=== PATIENT | female | born 1955 | race Caucasian/White ===

== ENCOUNTER → 2020-01-18 16:05 | Outpatient (CLI) | payer BC, SELFPAY ==
[2020-01-18 16:18] LABS: Bacteria 0 SEEN /hpf (None Seen); Mucous, Urine 0 SEEN /hpf (<or=2+); Squamous Epithelial Cells - UA 0 SEEN /hpf (5-10)
[2020-01-18 17:26] LABS: Color, Urine Yellow (Yellow); Glucose, Dipstick Normal (Normal); Ketone-Dipstick Negative (Negative); Leukocyte Esterase-Dipstick Negative /ul (Negative); Nitrite-Dipstick Negative (Negative); Occult Blood-Urine Negative /ul (Negative); Protein-Dipstick Negative (Negative); Specific Gravity, Urine 1.015 (1.002-1.030); Urine Bilirubin Dipstick Negative (Negative); Urine Clarity Clear (Clear); Urine Urobilinogen Normal (Normal)
[2020-01-18 17:26] LABS: Absolute Lymphocyte Count 1.46 X10^3/uL (0.83-4.51); Absolute Neutrophil Count 4.2 X10^3/uL (2.0-7.7); Basophil# 0.03 X10^3/uL; Basophil% 0.5 % (0-1); Eosinophil# 0.11 X10^3/uL; Eosinophils% 1.7 % (0-5); Hematocrit 45.1 % (37-47); Hemoglobin 14.1 g/dL (12.0-15.0); Lymphocyte # 1.46 X10^3/ul (4.0); Lymphocyte % 23.1 % (19-41); Mean Corp Hgb Conc 31.3 g/dL (32-36); Mean Corpuscular Hgb 30.3 pg (27.0-32.0); Mean Platelet Vol. 9.3 fl (6.2-12.0); Monocyte# 0.47 X10^3/uL; Monocyte% 7.4 % (0-10); NRBC Flagged by Analyzer 0 % (0-5); Neutrophil # 4.21 X10^3/uL (2.7-7.7); Neutrophil % 66.8 % (47-70); Platelet Count 258 K/mm3 (150-450); RBC Distribution Width SD 46.4 fl (35.1-43.9); Red Blood Count 4.65 M/mm3 (4.2-5.4); White Blood Count 6.3 K/mm3 (4.4-11.0)
[2020-01-18 17:45] LABS: Red Blood Cells-Urine 0-5 SEEN /hpf (0-5); White Blood Cells 0-5 SEEN /hpf (0-5)
[2020-01-18 17:59] LABS: ALB/GLOB Ratio 0.9 RATIO (0.9-2.4); AST(SGOT) 17 U/L (15-37); Alanine Aminotransfer ALT/SGPT 19 U/L (13-56); Albumin, Serum 3.5 g/dL (3.2-5.0); Alkaline Phosphatase 91 U/L (45-117); Anion Gap 4 (5-15); BUN 26 mg/dL (7-18); BUN/Creat Ratio 27.5 RATIO (10-20); Calcium,Total 9.2 mg/dL (8.5-10.1); Chloride 108 mmol/L (98-107); Cholesterol 225 mg/dL (200); Creatinine, Serum 0.94 mg/dL (0.55-1.02); EST Glomerular Filtration Rate 64 mL/min (>60); Est Glom Filt Rate - Afr Amer 77 mL/min (>60); Globulin 3.7 g/dL (2.2-4.2); Glucose 97 mg/dL (74-106); High Density Lipoprotein 84 mg/dL; Potassium 4.3 mmol/L (3.5-5.1); Protein, Total 7.2 g/dL (6.4-8.2); Sodium Level 142 mmol/L (136-145); Thyroid Stim Hormone (TSH) 1.52 uIU/mL (0.358-3.74); Triglycerides 96 mg/dL; Very Low Density Lipoprotein 19 mg/dL (5-40)
== END ==
PROVIDERS: PCP Family Medicine; Referring Provider Family Medicine; Visit Provider Family Medicine
DX: Z00.00 Encounter for general adult medical examination without abnormal findings (principal)
CPT/HCPCS: 36415; 80053; 80061; 81001; 84443; 85025

== ENCOUNTER 2020-03-08 07:43 | Day surgery (SDC) | payer BC, SELFPAY ==
[2020-01-31 15:31] VITALS: BMI 24.4
--- NOTE | 2020-03-07 22:36 | PCM.HP.BLA ---
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 It occurred 2 years ago when a washcloth got caught in her earring while she was showering and it ended up tearing her earlobe creating a bifid contour deformity. She has some discomfort when she bumps it. She comes in for further evaluation and treatment. PAST MEDICAL HISTORY Cataracts, bilateral Hearing problem High blood pressure PAST SURGICAL HISTORY hernia repair ALLERGIES No Known Allergies MEDICATIONS amitriptyline hydrochlorothiazide FAMILY HISTORY Aunt - Asthma Mother - Lung cancer, Brain cancer Grandmother - Diabetes Uncle - Heart disease Sister - Thyroid disorder SOCIAL HISTORY Smoking - Non-smoker Alcohol - No Drugs - No REVIEW OF SYSTEMS General - Denies fever, fatigue, and weight loss. Eyes - Denies glaucoma. Has history of cataracts. ENT - Denies nasal congestion and sore throat. Has history of hearing problems. She has a post-traumatic torn right earlobe scar contour deformity. Endocrine - Denies excessive thirst and urination. Skin - Denies suspicious lesions and skin cancer. Musculoskeletal - Denies weakness of muscles and joints, back pain, and arthritis. Complains of joint pain, joint stiffness. Neuro - Denies headaches. Cardiovascular - Denies chest pain, fatigue, and shortness of breath with exertion. Has hypertension. Psych - Denies anxiety and depression. Respiratory - Denies chronic cough and shortness of breath. Gastrointestinal - Denies nausea, vomiting, diarrhea, and constipation. Hematologic - Denies abnormal bruising and bleeding. Genitourinary - Denies hematuria and urinary frequency. PHYSICAL EXAMINATION General - Alert and oriented. HEENT - PERRL. EOMI. Throat is clear. 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 It is a bifid ear lobe that measures 7 mm. Mild discomfort when it is bumped. Neck - Supple and non-tender. No cervical adenopathy. Lungs- Clear to auscultation. Heart - Regular rate and rhythm. Abdomen - Soft and non distended. Extremities - FROM. No axillary adenopathy. Radial pulses are palpable. Neuro - CN II-XII grossly intact. Psych - Normal mood and affect. ASSESSMENT 1. 7 mm post-traumatic painful torn right earlobe scar contour deformity. 2. Late effect puncture wound right earlobe from piercing. PLAN Recommend excising this post-traumatic painful torn right ear lobe scar contour deformity. May rotate a skin flap to create a piercing hole. It will depend on the quality of the scar tissue when it is rotated. If it can be done, then a red rubber catheter would be placed in the piercing hole for a couple of weeks until the swelling around the piercing hole subsides. If it cannot be done, then excision and repair of the deformity would be done. In this scenario, the scar cannot be pierced for 6 months. She can victor another area of the earlobe away from the healing scar. At the time of surgery, may send some tissue to Microbiology for culture. A positive culture would necessitate antibiotic therapy. Surgery would be done on an outpatient basis under local anesthesia and IV sedation. Patient was informed of the risks and complications of the procedure including alternatives to surgery. These were discussed with the patient personally. Patient voices understanding and wishes to proceed. Some of the risks and complications were included in a form from the [employer]. We discussed the current risks associated with COVID-19. While it is understood that there is a community spread of COVID-19, the risk of juan f COVID-19 while at [facility] ([facility]) is very low; however, the risk cannot be completely mitigated because of the community spread of the disease. We discussed in detail the risk of exposure to and/or potential harm posed by the COVID-19 virus with having a surgery/procedure at this time versus the risk of delaying the surgery/procedure. It is not possible to know either the risk of delaying the surgery or procedure or chance of getting an infection with perfect accuracy, but a joint decision was made to proceed at this time with the scheduled surgery/procedure as indicated on the consent form. Patient was notified that we will need to comply with any screening or testing [facility] wishes to perform or that surgery may be delayed for any positive results. Discussed with the patient that I was tested for COVID-19 on 02/29/20. My test was negative. My testing regimen at this time is to be COVID-19 tested every 2 weeks or so. Procedure Criteria Procedure Type: Elective COVID Risk Discussion: The surgeon/proceduralist and patient have discussed in detail the risk of exposure to and/or potential harm posed by the COVID-19 virus with having a surgery/procedure at this time versus the risk of delaying the surgery/procedure. It is not possible to know either the risk of delaying the surgery or procedure or chance of getting an infection with perfect accuracy, but a joint decision was made between the patient and the surgeon/proceduralist to proceed at this time with the scheduled surgery/procedure as indicated on the consent form.
[2020-03-08 08:31] VITALS: BP 123/73; PULSE 61; RESP 14; TEMP 36.8; O2SAT 98; BMI 23.2
[2020-03-08] MEDS: Lactated Ringers 1,000 ML 100 ML IV (08:52)
--- NOTE | 2020-03-08 09:30 | TISS_PTH ---
PATIENT: ROSS KOEHLER LOC: [facility] [place] U#:[id number] AGE/SX: 64/F ROOM: RE03/08/[address]: Dr. Tong Campos MD : 1955 BED: DIS: 03/08/2020 SPEC #: [id number] RECD: 03/08/20 12:57 STATUS: ADRIENNE EMA #: [id number] MAN: 03/08/20 09:[address]: Tong Campos DEPT: SURGICAL PATHOLOGY RECD BY: Pearl Horowitz ENTERED: 03/11/20 08:57 SP TYPE: Tissue Bx MOON DR: Dr. Bhanu Guerra MD Tissues: Ear, NOS Procedures: Surgery Specimen Level IV HEADER OPERATION: Excision and repair painful posttraumatic torn earlobe PRE-OP DIAGNOSIS: 7 mm posttraumatic, painful, torn right earlobe TISSUE SUBMITTED: Right earlobe MICROSCOPIC DIAGNOSIS Lesion of right earlobe, biopsy: Consistent with benign fibroepithelial polyp, inflamed. Solar elastosis. AM:tony 03/12/20 MICROSCOPIC DESCRIPTION Slides are reviewed. GROSS DESCRIPTION Received in fixative is one container labeled with the patient's name and designated right earlobe. The specimen consists of one irregular fragment of light hsu soft tissue that measures 0.2 x 0.1 x <0.1 cm. The specimen is totally submitted in one cassette. / AM:tony 03/11/20 TC:5 CPT: 72453
[2020-03-08] MEDS: Mupirocin Ointment 22gm Tube 1 APPLIC (10:30)
--- NOTE | 2020-03-08 10:42 | PCM.OPRPT ---
Report of Operation Date of Procedure: 03/08/20 Pre-Operative Diagnosis: 1. 7 mm post-traumatic painful torn right earlobe scar contour deformity. 2. Late effect puncture wound right earlobe from piercing. Post-Operative Diagnosis: Same. Surgery/Procedure Performed:: Excision and repair post-traumatic painful torn right ear lobe scar contour deformity with rotation skin flap reconstruction. 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 It occurred 2 years ago when a washcloth got caught in her earring while she was showering and it ended up tearing her earlobe creating a bifid contour deformity. She has some discomfort when she bumps it. Patient was informed of the risks and complications of the procedure including alternatives to surgery. These were discussed with the patient personally. Patient voices understanding and wishes to proceed. Some of the risks and complications were included in a form from the [employer]. paraprofessional interpreter: None Type of Anesthesia:: Local MAC - xylocaine with epinephrine and IV sedation. Specimen's removed: Right ear lobe tissue to Pathology and Microbiology. Drains: None. Estimated Blood Loss (mL): 2 ml. Description of Procedure: Patient was taken to OR in supine position and was given IV sedation. She was placed in the lateral position. The right ear area was prepped and draped in the usual fashion. SCD's were placed for DVT prophylaxis. Perioperative antibiotics were given intravenously. For the surgery, I wore an N95 mask and work proper eye protection. The right ear was infiltrated with xylocaine and epinephrine with a regional auricular block. After waiting 5 minutes for the anesthetic to take effect, I excised the scar contour deformity on the superior edge. On the inferior edge, I excised the scar contour deformity and left the tissue as a proximally based skin flap. The tissue that was excised was sent to Pathology for analysis to rule out carcinoma and to Microbiology for culture. A positive culture will necessitate antibiotic therapy. The inferior skin flap was rotated onto itself and secured to the proximal base of the flap and secured with 5-0 Monocryl simple interrupted sutures. This was done to re-create a piercing hole. The rest of the ear lobe wound was secured with 5-0 Monocryl interrupted suture for the deep dermis and subcutaneous tissue. The skin was approximated with 6-0 Prolene simple interrupted sutures. During the initial postoperative period, I will keep the piercing hole patent with a size 8 red rubber catheter. I sutured it to itself to create a hoop with 5-0 Prolene simple interrupted sutures. Good ear lobe contour noted. Antibiotic ointment was applied to the suture line. Patient tolerated the procedure well and was sent to PACU in satisfactory condition. Patient will be sent home on antibiotics and pain medication. She will keep her head elevated during the initial postoperative period. Patient will followup in a week for a wound check and for discussion of the pathology report and for discussion of the microbiology report. A positive culture will necessitate antibiotic therapy. The sutures and the red rubber catheter will be removed in 2 weeks. Grafts/Implants Used: None. - Complications None. - Admit VTE Documentation VTE Present on Admission: No VTE Mechan Device Prophylaxis: SCD's VTE Pharm Prophylaxis ordered?: No Surgery Charges CPT - 18504 ICD-10 - S01.331S, R20.8 41566 S01.331S, R20.8
[2020-03-08 10:45] VITALS: BP 103/57; BP 123/73; PULSE 78; RESP 16; TEMP 36.2; O2SAT 95
[2020-03-08 10:50] VITALS: BP 105/57; BP 123/73; PULSE 75; RESP 16; O2SAT 97
--- NOTE | 2020-03-08 10:51 | PCM.DC ---
You will use the following diet at home:: No restrictions Discharge Activity: May not drive while taking narcotic pain medications., May Shower - in two days from the neck down. May wash face gently in the sink. Try and avoid right ear getting wet., - - keep head elevated. no heavy lifting. May shower in (days): 2 - from the neck down. May resume sexual activity in: No Restrictions Weight Bearing Status: Weight bearing as tolerated Lifting Restrictions: 20 lbs. Keep extremity elevated above heart level: - - elevate head. Call your doctor if your incision/area has: Continuous Slow Oozing, Sudden Increased Bleeding, Increased Pain/ Swelling, Increased Redness, Foul Smelling Discharge, Swelling at the incision site Call your doctor if you observe: Fever of 101 or Higher, Coldness, Increased Pain, Shortness of breath, Chest pain, Calf discomfort, Uncontrolled pain Suture Line Care: - - apply antibiotic ointment daily to suture line. Cleanse incision/area with: - - may shower in two days from the neck down. Additional Instructions: Will remove the red rubber catheter in 2 weeks. Allergies/Adverse Reactions: Allergies No Known Allergies Allergy (Verified 03/06/20 14:17) Medications to take at Discharge amitriptyline 10 mg tablet 10 mg PO DAILY 01/31/20 hydrochlorothiazide 25 mg tablet 25 mg PO DAILY 01/31/20 Clindamycin HCl [Cleocin] 300 mg PO TID #15 cap 03/08/20 Lactobacillus Acidophilus/Fos [Acidophilus Probiotic Tablet] 1 ea PO BID #10 tab 03/08/20 Oxycodone HCl/Acetaminophen [Percocet 5/325] 1 tablet PO Q6H PRN PRN 5 Days #20 tablet 03/08/20 The following prescriptions were given: Lactobacillus Acidophilus/Fos [Acidophilus Probiotic Tablet] 1 ea PO BID #10 tab Transmission Status: Pending to [facility][id number] Clindamycin HCl [Cleocin] 300 mg PO TID #15 cap Transmission Status: Pending to [facility] #[id number] Oxycodone HCl/Acetaminophen [Percocet 5/325] 1 tablet PO Q6H PRN PRN 5 Days #20 tablet PRN Reason: Pain Score 4-5/10 Transmission Status: Received by [facility]/pharmacy #[id number] Primary Care Physician: Schinner,Bhanu E, MD [Primary Care Provider] - Test Results: Test results from this visit will be discussed in further detail at your follow-up appointment, if applicable. Please Follow Up With: Tong Campos MD When: one week. call [phone] for appt. Proposed Discharge Date: 03/08/20
[2020-03-08 10:55] VITALS: BP 103/58; BP 123/73; PULSE 73; RESP 16; O2SAT 96
[2020-03-08 11:00] VITALS: BP 104/62; BP 123/73; PULSE 74; RESP 16; TEMP 36.1; O2SAT 96
[2020-03-08 11:30] VITALS: BP 123/73
== END 2020-03-08 11:37 | disposition home or self-care (01) ==
LOC: SDC 07:44 → AC 07:45
PROVIDERS: Anesthesiology; PCP Family Medicine; Referring Provider Surgery; Visit Provider Surgery
DX: H61.111 Acquired deformity of pinna, right ear (principal); L57.8 Other skin changes due to chronic exposure to nonionizing radiation; I10 Essential (primary) hypertension; Z11.59 Encounter for screening for other viral diseases; Z79.899 Other long term (current) drug therapy
CPT/HCPCS: 00300; 14060; 87015; 87070; 87075; 87102; 87116; 87205; 87206; 87635; 88305; G2023; J7120; J2405; U0003

== ENCOUNTER → 2020-12-03 10:10 | Outpatient (CLI) | payer BC, SELFPAY ==
[2020-04-03 10:27] VITALS: BMI 23.2
[2020-12-03 12:09] LABS: Absolute Lymphocyte Count 1.35 X10^3/uL (0.83-4.51); Basophil# 0.04 X10^3/uL; Basophil% 0.7 % (0-1); Eosinophil# 0.08 X10^3/uL; Eosinophils% 1.4 % (0-5); Hematocrit 40.8 % (37-47); Hemoglobin 13.1 g/dL (12.0-15.0); Lymphocyte # 1.35 X10^3/ul (4.0); Lymphocyte % 22.9 % (19-41); Mean Corp Hgb Conc 32.1 g/dL (32-36); Mean Corpuscular Hgb 30.8 pg (27.0-32.0); Mean Corpuscular Volume 95.8 fL (81-99); Mean Platelet Vol. 9.3 fl (6.2-12.0); Monocyte# 0.43 X10^3/uL; Monocyte% 7.3 % (0-10); NRBC Flagged by Analyzer 0 % (0-5); Neutrophil # 3.99 X10^3/uL (2.7-7.7); Neutrophil % 67.5 % (47-70); Platelet Count 263 K/mm3 (150-450); RBC Distribution Width CV 13.2 % (11.6-14.6); RBC Distribution Width SD 46.5 fl (35.1-43.9); Red Blood Count 4.26 M/mm3 (4.2-5.4); White Blood Count 5.9 K/mm3 (4.4-11.0)
[2020-12-03 12:25] LABS: AST(SGOT) 22 U/L (15-37); Alanine Aminotransfer ALT/SGPT 24 U/L (13-56); Albumin, Serum 3.8 g/dL (3.2-5.0); Alkaline Phosphatase 88 U/L (45-117); Anion Gap 4 (5-15); BUN 27 mg/dL (7-18); BUN/Creat Ratio 20.5 RATIO (10-20); Chloride 102 mmol/L (98-107); Cholesterol 214 mg/dL (200); Creatinine, Serum 1.32 mg/dL (0.55-1.02); EST Glomerular Filtration Rate 43 mL/min (>60); Est Glom Filt Rate - Afr Amer 52 mL/min (>60); Globulin 3.9 g/dL (2.2-4.2); Glucose 88 mg/dL (74-106); High Density Lipoprotein 89 mg/dL; Potassium 3.2 mmol/L (3.5-5.1); Protein, Total 7.7 g/dL (6.4-8.2); Sodium Level 140 mmol/L (136-145); Triglycerides 64 mg/dL; Very Low Density Lipoprotein 13 mg/dL (5-40)
[2020-12-03 12:29] LABS: Microalbumin,Random Urine < 5.0 mg/L (NO RANGE EST.)
[2020-12-12 12:49] LABS: Anion Gap 3 (5-15); BUN 22 mg/dL (7-18); Chloride 105 mmol/L (98-107); EST Glomerular Filtration Rate 53 mL/min (>60); Est Glom Filt Rate - Afr Amer 65 mL/min (>60); Glucose 77 mg/dL (74-106); Potassium 3.3 mmol/L (3.5-5.1); Sodium Level 139 mmol/L (136-145)
== END ==
PROVIDERS: PCP Family Medicine; Referring Provider Family Medicine; Visit Provider Family Medicine
DX: I10 Essential (primary) hypertension (principal)
CPT/HCPCS: 36415; 80048; 80053; 80061; 82043; 82570; 85025

== ENCOUNTER → 2020-12-12 10:44 | Outpatient (CLI) | payer BC, SELFPAY ==
[2020-04-03 10:27] VITALS: BMI 23.2
== END ==
PROVIDERS: PCP Family Medicine; Referring Provider Family Medicine; Visit Provider Family Medicine
DX: R69 Illness, unspecified (principal)

== ENCOUNTER 2021-09-17 15:08 | Outpatient (CLI) | payer BC, SELFPAY ==
--- NOTE | 2021-09-17 15:45 | VDUE_ITS ---
Reason For Study: Swelling Right Proximal Right jugular vein is spontaneous, widely patent, phasic, with no intraluminal echogenicity noted. Right subclavian vein is spontaneous, widely patent, phasic, with no intraluminal echogenicity noted. Right Lower Arm Right radial vein is compressible. Right ulnar vein is compressible. Right Arm Right axillary vein is spontaneous, patent, phasic, competent, compressible and demonstrates augmentation. Right brachial vein is compressible. Right cephalic vein is compressible. Right basilic vein is compressible. Patient Safety Preliminary report to Charlie. VL/Venous Duplex US, Unilateral Interpretation Summary Deep veins of the right upper extremity are patent and compressible segmentally . There is no evidence of deep vein thrombosis. The superficial veins of the right upper extr emity, the basilic and cephalic veins, are patent and compressible. There is no evidence of right upper extremity superficial thrombophlebitis involving the veins imaged. Ordering Physician: Bhanu Guerra Referring Physician: Bhanu Guerra Performed By: Chantelle Anne RVT ?
== END 2021-09-17 23:59 | disposition short-term general hospital (02) ==
LOC: CVS 15:09
PROVIDERS: PCP Family Medicine; Referring Provider Family Medicine; Visit Provider Family Medicine
DX: M79.89 Other specified soft tissue disorders (principal)
CPT/HCPCS: 93971

== ENCOUNTER 2021-09-30 09:04 | Outpatient (CLI) | payer BC, SELFPAY ==
--- NOTE | 2021-09-30 09:06 | US_ITS ---
STUDY: SUPERFICIAL ULTRASOUND - PROXIMAL RIGHT FOREARM. REASON FOR EXAM: Female, 65 years old. Palpable lump in the proximal right forearm. History of injury. TECHNIQUE: A superficial ultrasound was performed with real-time and static blum-scale imaging. COMPARISON: None. FINDINGS: The palpable lump corresponds to a 3.4 cm x 2.6 cm x 1.5 cm heterogeneous echotexture soft tissue density. With the history of injury, this may represent possible hematoma. Follow-up is recommended. US/Ext Non Vasc Limited/Soft Tiss IMPRESSION: The palpable abnormality corresponds with 3.4 cm x 2.6 cm by 1.5 cm heterogeneous soft tissue density. A hematoma should be ruled out. Follow-up imaging is recommended. Electronically Signed: John Paul Davis MD at 15:00 EST ,
== END 2021-09-30 23:59 | disposition short-term general hospital (02) ==
LOC: US 09:05
PROVIDERS: PCP Family Medicine; Referring Provider Family Medicine; Visit Provider Family Medicine
DX: M79.89 Other specified soft tissue disorders (principal)
CPT/HCPCS: 76882

== ENCOUNTER 2021-11-14 08:31 | Outpatient (CLI) | payer BC, SELFPAY ==
[2021-11-14 09:57] LABS: Absolute Lymphocyte Count 1.17 X10^3/uL (0.83-4.51); Absolute Neutrophil Count 3.3 X10^3/uL (2.0-7.7); Basophil# 0.06 X10^3/uL; Basophil% 1.2 % (0-1); Eosinophil# 0.32 X10^3/uL; Eosinophils% 6.1 % (0-5); Hematocrit 36.8 % (37-47); Lymphocyte # 1.17 X10^3/ul (0.83-4.51); Lymphocyte % 22.5 % (19-41); Mean Corp Hgb Conc 32.6 g/dL (32-36); Mean Corpuscular Volume 95.1 fL (81-99); Mean Platelet Vol. 9.3 fl (6.2-12.0); Monocyte# 0.34 X10^3/uL; Monocyte% 6.5 % (0-10); NRBC Flagged by Analyzer 0 % (0-5); Neutrophil # 3.29 X10^3/uL (2.7-7.7); Neutrophil % 63.1 % (47-70); Platelet Count 352 K/mm3 (150-450); RBC Distribution Width CV 13.2 % (11.6-14.6); RBC Distribution Width SD 45.7 fl (35.1-43.9); Red Blood Count 3.87 M/mm3 (4.2-5.4); White Blood Count 5.2 K/mm3 (4.4-11.0)
[2021-11-14 10:41] LABS: AST(SGOT) 20 U/L (15-37); Alanine Aminotransfer ALT/SGPT 23 U/L (13-56); Albumin, Serum 3.5 g/dL (3.2-5.0); Alkaline Phosphatase 77 U/L (45-117); Anion Gap 4 (5-15); BUN 25 mg/dL (7-18); BUN/Creat Ratio 28.4 RATIO (10-20); Calcium,Total 8.7 mg/dL (8.5-10.1); Chloride 102 mmol/L (98-107); Cholesterol 184 mg/dL (200); Creatinine, Serum 0.88 mg/dL (0.55-1.02); EST Glomerular Filtration Rate 69 mL/min (>60); Est Glom Filt Rate - Afr Amer 83 mL/min (>60); Globulin 3.4 g/dL (2.2-4.2); Glucose 104 mg/dL (74-106); High Density Lipoprotein 76 mg/dL; Potassium 3.5 mmol/L (3.5-5.1); Protein, Total 6.9 g/dL (6.4-8.2); Sodium Level 138 mmol/L (136-145); Thyroid Stim Hormone (TSH) 1.27 uIU/mL (0.358-3.74); Triglycerides 56 mg/dL; Very Low Density Lipoprotein 11 mg/dL (5-40)
== END 2021-11-14 23:59 | disposition home or self-care (01) ==
LOC: MFPLAB 08:35
PROVIDERS: PCP Family Medicine; Referring Provider Family Medicine; Visit Provider Family Medicine
DX: I10 Essential (primary) hypertension (principal)
CPT/HCPCS: 36415; 80053; 80061; 84443; 85025

== ENCOUNTER 2022-04-24 11:44 | Outpatient (CLI) | payer BC, SELFPAY ==
[2022-04-30 17:05] LABS: HPV APTIMA, High Risk Negative (Negative); HPV Reflexed? NOT INDICATED
== END 2022-04-24 23:59 | disposition home or self-care (01) ==
LOC: LABSPEC 11:45
PROVIDERS: PCP Family Medicine; Referring Provider Nurse Practitioner Family; Visit Provider Nurse Practitioner Family
DX: Z01.419 Encounter for gynecological examination (general) (routine) without abnormal findings (principal)
CPT/HCPCS: 88175; G0145

== ENCOUNTER → 2022-07-08 | Outpatient (CLI) | payer BC, SELFPAY ==
[2022-07-08 12:08] LABS: Absolute Neutrophil Count 2.5 X10^3/uL (2.0-7.7); Basophil# 0.04 X10^3/uL; Basophil% 0.9 % (0-1); Eosinophil# 0.15 X10^3/uL; Eosinophils% 3.5 % (0-5); Hematocrit 39.1 % (37-47); Hemoglobin 12.3 g/dL (12.0-15.0); Lymphocyte % 28.2 % (19-41); Mean Corp Hgb Conc 31.5 g/dL (32-36); Mean Corpuscular Hgb 30.7 pg (27.0-32.0); Mean Corpuscular Volume 97.5 fL (81-99); Mean Platelet Vol. 9.4 fl (6.2-12.0); Monocyte# 0.36 X10^3/uL; Monocyte% 8.5 % (0-10); NRBC Flagged by Analyzer 0 % (0-5); Neutrophil % 58.7 % (47-70); Platelet Count 228 K/mm3 (150-450); RBC Distribution Width CV 12.9 % (11.6-14.6); RBC Distribution Width SD 45.7 fl (35.1-43.9); Red Blood Count 4.01 M/mm3 (4.2-5.4); White Blood Count 4.3 K/mm3 (4.4-11.0)
[2022-07-08 12:36] LABS: ALB/GLOB Ratio 1.1 RATIO (0.9-2.4); AST(SGOT) 26 U/L (15-37); Alanine Aminotransfer ALT/SGPT 22 U/L (13-56); Albumin, Serum 3.5 g/dL (3.2-5.0); Alkaline Phosphatase 68 U/L (45-117); Anion Gap 5 (5-15); BUN 23 mg/dL (7-18); BUN/Creat Ratio 32.4 RATIO (10-20); Calcium,Total 8.8 mg/dL (8.5-10.1); Chloride 105 mmol/L (98-107); Cholesterol 200 mg/dL (200); Creatinine, Serum 0.71 mg/dL (0.55-1.02); EST Glomerular Filtration Rate 88 mL/min (>60); Est Glom Filt Rate - Afr Amer 107 mL/min (>60); Globulin 3.3 g/dL (2.2-4.2); Glucose 86 mg/dL (74-106); High Density Lipoprotein 94 mg/dL; Potassium 3.6 mmol/L (3.5-5.1); Protein, Total 6.8 g/dL (6.4-8.2); Sodium Level 139 mmol/L (136-145); Triglycerides 51 mg/dL; Very Low Density Lipoprotein 10 mg/dL (5-40)
== END | disposition home or self-care (01) ==
PROVIDERS: PCP Family Medicine; Referring Provider Family Medicine; Visit Provider Nurse Practitioner Family
DX: I10 Essential (primary) hypertension (principal)
CPT/HCPCS: 36415; 80053; 80061; 85025

== ENCOUNTER → 2023-01-06 | Outpatient (CLI) | payer BC, SELFPAY ==
[2023-01-06 10:09] LABS: Bacteria 0 SEEN /hpf (None Seen); Red Blood Cells-Urine 0 SEEN /hpf (0-5)
[2023-01-06 12:31] LABS: Absolute Neutrophil Count 2.8 X10^3/uL (2.0-7.7); Basophil# 0.03 X10^3/uL; Basophil% 0.7 % (0-1); Eosinophil# 0.11 X10^3/uL; Eosinophils% 2.7 % (0-5); Hematocrit 39.2 % (37-47); Hemoglobin 12.6 g/dL (12.0-15.0); Mean Corp Hgb Conc 32.1 g/dL (32-36); Mean Corpuscular Volume 96.6 fL (81-99); Mean Platelet Vol. 9.6 fl (6.2-12.0); Monocyte% 7.3 % (0-10); NRBC Flagged by Analyzer 0 % (0-5); Neutrophil # 2.75 X10^3/uL (2.7-7.7); Neutrophil % 67.1 % (47-70); Platelet Count 248 K/mm3 (150-450); RBC Distribution Width CV 12.4 % (11.6-14.6); RBC Distribution Width SD 44.5 fl (35.1-43.9); Red Blood Count 4.06 M/mm3 (4.2-5.4); White Blood Count 4.1 K/mm3 (4.4-11.0)
[2023-01-06 12:33] LABS: Color, Urine Yellow (Yellow); Glucose, Dipstick Normal (Normal); Ketone-Dipstick Negative (Negative); Leukocyte Esterase-Dipstick 25 /ul (Negative); Nitrite-Dipstick Negative (Negative); Occult Blood-Urine Negative /ul (Negative); Protein-Dipstick Negative (Negative); Urine Bilirubin Dipstick Negative (Negative); Urine Clarity Sl. Cloudy (Clear); Urine Urobilinogen Normal (Normal)
[2023-01-06 12:48] LABS: Hyaline Cast 0-5 SEEN /lpf (0-5); Mucous, Urine 1+ /hpf (<or=2+); Squamous Epithelial Cells - UA 0-5 SEEN /hpf (5-10); White Blood Cells 0-5 SEEN /hpf (0-5)
[2023-01-06 13:08] LABS: ALB/GLOB Ratio 1.1 RATIO (0.9-2.4); AST(SGOT) 26 U/L (15-37); Alanine Aminotransfer ALT/SGPT 25 U/L (13-56); Albumin, Serum 3.6 g/dL (3.2-5.0); Alkaline Phosphatase 68 U/L (45-117); Anion Gap 7 (5-15); BUN 21 mg/dL (7-18); BUN/Creat Ratio 23.6 RATIO (10-20); Calcium,Total 9.3 mg/dL (8.5-10.1); Chloride 102 mmol/L (98-107); Cholesterol 207 mg/dL (200); Creatinine, Serum 0.89 mg/dL (0.55-1.02); EST Glomerular Filtration Rate 68 mL/min (>60); Est Glom Filt Rate - Afr Amer 82 mL/min (>60); Globulin 3.3 g/dL (2.2-4.2); Glucose 98 mg/dL (74-106); High Density Lipoprotein 89 mg/dL; Potassium 3.5 mmol/L (3.5-5.1); Protein, Total 6.9 g/dL (6.4-8.2); Sodium Level 139 mmol/L (136-145); Thyroid Stim Hormone (TSH) 2.06 uIU/mL (0.358-3.74); Triglycerides 51 mg/dL; Very Low Density Lipoprotein 10 mg/dL (5-40)
== END | disposition home or self-care (01) ==
LOC: MFPLAB 10:06
PROVIDERS: PCP Family Medicine; Visit Provider Family Medicine
DX: I10 Essential (primary) hypertension (principal)
CPT/HCPCS: 36415; 80053; 80061; 81001; 84443; 85025

== ENCOUNTER → 2023-10-19 | Outpatient (CLI) | payer BC, SELFPAY ==
--- NOTE | 2023-10-19 08:31 | BD_ITS ---
STUDY: DUAL ENERGY X-RAY ABSORPTIOMETRY / DXA REASON FOR EXAM: Female, 67 years old. Z780 TECHNIQUE: Bone Mineral Density (BMD) measurements of lumbar spine and bilateral hips were obtained. COMPARISON: None. FINDINGS: Lumbar Spine (L1-L4): g/cm2 (0.953) / T-score (-0.2) / Z-score (1.5) Findings are suggestive of normal bone density with a low fracture risk. Left Femur Total: g/cm2 (0.707) / T-score (-1.9) / Z-score (-0.7) Left Femoral Neck: g/cm2 (0.602) / T-score (-2.2) / Z-score (-0.7) Right Femur Total: g/cm2 (0.664) / T-score (-2.3) / Z-score (-1.0) Right Femoral Neck: g/cm2 (0.562) / T-score (-2.6) / Z-score (-1.0) BD/Dexa Bone Density Study IMPRESSION: The patient is considered osteoporotic as outlined below according to World [employer] Organization (WHO) criteria with a high fracture risk. Reference Information: The T-score is the number of standard deviations above or below the standard which is normal for young adults at their peak bone mineral density. The World Health Organization (WHO) interprets the T-scores as follows: Above -1 Normal bone density Between -1 and -2.5 Osteopenia Equal to / or below -2.5 Osteoporosis As a practical clinical guideline, osteopenia may be graded as follows: Mild -1 through -1.5 Moderate -1.6 through -2.0 Severe -2.1 through -2.4 The Z-score is the number of standard deviations above or below age-matched controls. A Z-score of less than -1.5 would be considered abnormal. References: 1. NIH Osteoporosis and Related Bone Diseases www osteo.org 2. International Society for Clinical Densitometry www iscd.org 3. National Osteoporosis Foundation www nof.org Electronically Signed: John Paul Davis MD at 14:25 EST ,
== END | disposition home or self-care (01) ==
PROVIDERS: PCP Family Medicine; Referring Provider Family Medicine; Visit Provider Family Medicine
DX: Z78.0 Asymptomatic menopausal state (principal)
CPT/HCPCS: 77080

== ENCOUNTER → 2023-10-29 | Outpatient (CLI) | payer BC, SELFPAY ==
[2023-10-29 16:02] LABS: Vitamin D,25 Hydroxy 14.6 ng/mL
[2023-10-29 16:16] LABS: AST(SGOT) 17 U/L (15-37); Alanine Aminotransfer ALT/SGPT 21 U/L (13-56); Albumin, Serum 3.5 g/dL (3.2-5.0); Alkaline Phosphatase 82 U/L (45-117); Anion Gap 3 (5-15); BUN 22 mg/dL (7-18); BUN/Creat Ratio 27.4 RATIO (10-20); Calcium,Total 8.8 mg/dL (8.5-10.1); Chloride 106 mmol/L (98-107); EST Glomerular Filtration Rate 76 mL/min (>60); Est Glom Filt Rate - Afr Amer 92 mL/min (>60); Globulin 3.4 g/dL (2.2-4.2); Glucose 75 mg/dL (74-106); Potassium 3.7 mmol/L (3.5-5.1); Protein, Total 6.9 g/dL (6.4-8.2); Sodium Level 141 mmol/L (136-145)
== END | disposition home or self-care (01) ==
LOC: MFPLAB 12:15
PROVIDERS: PCP Family Medicine; Visit Provider Family Medicine
DX: M81.0 Age-related osteoporosis without current pathological fracture (principal)
CPT/HCPCS: 36415; 80053; 82306

== ENCOUNTER → 2025-05-11 | Outpatient (CLI) | payer BC, SELFPAY ==
[2025-05-11 15:40] LABS: Mucous, Urine 0 SEEN /hpf (<or=2+)
[2025-05-11 17:55] LABS: Hematocrit 40.8 % (37-47); Hemoglobin 13.3 g/dL (12.0-15.0); Immature Granulocytes Count 0.020 X10^3/uL (0.0-0.0); Mean Corp Hgb Conc 32.6 g/dL (32-36); Mean Corpuscular Volume 94.4 fL (81-99); Mean Platelet Vol. 9.5 fl (6.2-12.0); NRBC Flagged by Analyzer 0 % (0-5); Platelet Count 281 K/mm3 (150-450); RBC Distribution Width CV 13.1 % (11.6-14.6); RBC Distribution Width SD 45.6 fl (35.1-43.9); Red Blood Count 4.32 M/mm3 (4.2-5.4); White Blood Count 6.3 K/mm3 (4.4-11.0)
[2025-05-11 18:11] LABS: Color, Urine Straw (Yellow); Glucose, Dipstick Normal (Normal); Ketone-Dipstick Negative (Negative); Leukocyte Esterase-Dipstick Negative /ul (Negative); Nitrite-Dipstick Negative (Negative); Occult Blood-Urine Negative /ul (Negative); Protein-Dipstick 15 mg/dl (Negative); Specific Gravity, Urine 1.020 (1.002-1.030); Urine Bilirubin Dipstick Negative (Negative)
[2025-05-11 18:48] LABS: Cholesterol 193 mg/dL (<=200); Low Density Lipoprotein Calc. 103 mg/dL; Magnesium 2.0 mg/dL (1.5-2.2); Triglycerides 116 mg/dL; Very Low Density Lipoprotein 23 mg/dL (5-40); Vitamin D,25 Hydroxy 51.5 ng/mL (30-100); cholesterol:hdl ratio screen 2.90
[2025-05-11 18:51] LABS: Alanine Aminotransfer ALT/SGPT 14 U/L (<=34); Albumin, Serum 3.9 g/dL (3.4-4.8); Alkaline Phosphatase 72 U/L (35-104); Anion Gap 10 (5-15); BUN 26 mg/dL (4-19); BUN/Creat Ratio 27.9 RATIO (10-20); Calcium,Total 9.5 mg/dL (7.6-11.0); Carbon Dioxide 29.7 mmol/L (21.0-32.0); Chloride 104 mmol/L (98-108); Globulin 3.0 g/dL (2.2-4.2); Glucose 121 mg/dL (70-99); Potassium 3.6 mmol/L (3.3-5.1)
[2025-05-11 19:06] LABS: AST(SGOT) 22 U/L (<=31)
[2025-05-11 19:35] LABS: Squamous Epithelial Cells - UA 0-5 SEEN /hpf (5-10)
[2025-05-11 19:38] LABS: Red Blood Cells-Urine 0-5 SEEN /hpf (0-5)
== END | disposition home or self-care (01) ==
LOC: MFPLAB 15:37
PROVIDERS: PCP Family Medicine; Referring Provider Family Medicine; Visit Provider Family Medicine
DX: R73.09 Other abnormal glucose (principal); E55.9 Vitamin D deficiency, unspecified; I10 Essential (primary) hypertension
CPT/HCPCS: 36415; 80053; 80061; 81001; 82306; 83036; 83735; 84443; 85025

== ENCOUNTER → 2025-05-29 | Outpatient (CLI) | payer MEDICARE, OTHER, SELFPAY ==
--- NOTE | 2025-05-29 | EMB_PTH ---
PATIENT: ROSS KOEHLER LOC: [facility]#:[id number] AGE/SX: 69/F ROOM: RE05/29/[address]: ROSS Bruce : 1955 BED: DIS: 05/29/2025 SPEC #: [id number] RECD: 05/29/25 15:51 STATUS: ADRIENNE REQ #: [id number] MAN: 05/29/25 00:[address]: Zoe Cole NP DEPT: SURGICAL PATHOLOGY RECD BY: Evan Daniels ENTERED: 05/30/25 14:43 SP TYPE: ENDOM BX/C MOON DR: Dr. Bhanu Guerra MD Tissues: A - Endometrium, NOS Procedures: Surgery Specimen Level IV HEADER OPERATION: Endometrial biopsy / polypectomy PRE-OP DIAGNOSIS: Post menopausal bleeding TISSUE SUBMITTED: A- Endometrial lining, B- Polyp MICROSCOPIC DIAGNOSIS A. Endometrium, biopsy: * Endometrial hyperplasia without atypia. B. Polyp, polypectomy: * Polypoid endocervical mucosa with squamous metaplasia. MICROSCOPIC DESCRIPTION Slides are reviewed. GROSS DESCRIPTION Received in 2 formalin containers labeled with the patient's name and date of . Designated as: A. Endometrial tissue is a 2.5 x 2.4 x 0.3 cm aggregate of mucoid material, clotted blood and red tissue fragments. Entirely submitted in 1 cassette. B. Polyp is a 0.4 x 0.3 x 0.2 cm hsu focally erythematous tissue fragment and mucoid material. Entirely submitted in 1 cassette (see note). Note: No source for polypectomy identified on the specimen requisition ([place]) [place] 05/30/2025 CPT:47853n7
--- NOTE | 2025-05-29 14:55 | US_ITS ---
PROCEDURE: PELVIC W/ TRANSVAGINAL 05/29/2025 REASON FOR EXAM: PMB X 1 YEAR TECHNIQUE: Procedure Code: [id number] Modality: US Procedure: PELVIC W/ TRANSVAGINAL COMPARISON: None FINDINGS: Uterus is retroverted position. It measures 9.4 x 5.3 x 4.1 cm. Uterine fibroids are noted measuring 3.8 x 3.4 x 3.5 cm within the right aspect. Endometrial thickness is 1.9 cm. Endometrium is hyperechoic. Echogenic areas noted at the cervix which may reflect thickening or nabothian cyst measuring 1.9 x 1.4 x 0.9 cm. Right ovary measures 2.5 x 1.7 x 1.8 cm. Normal vasculature is noted within the right ovary. left ovary is not well visualized. No free fluid is noted within the cul-de-sac. US/Pelvic w/ Transvaginal IMPRESSION: Uterine fibroids measuring up to 3.8 cm. Thickened endometrium with hyperechog enicity within, which may reflect blood product. Left ovary not well seen. Right ovary is unremarkable. Reading Location: [id number]
== END | disposition home or self-care (01) ==
PROVIDERS: PCP Family Medicine; Referring Provider Nurse Practitioner Women's Health; Visit Provider Nurse Practitioner Women's Health
DX: N95.0 Postmenopausal bleeding (principal); N85.00 Endometrial hyperplasia, unspecified; N84.1 Polyp of cervix uteri
CPT/HCPCS: 76830; 76856; 88305

== ENCOUNTER 2025-07-17 09:03 | Day surgery (SDC) | payer MEDICARE, OTHER, SELFPAY ==
[2025-07-17] VITALS (12 sets, daily range): BP systolic 111–124; BP diastolic 65–85; PULSE 70–81; RESP 16–18; TEMP 36.4–36.9; O2SAT 93–98; BMI 24.2
--- NOTE | 2025-07-17 09:17 | EKG12_ITS ---
Test Reason : PRE-OP Blood Pressure : */* mmHG Vent. Rate : 72 BPM Atrial Rate : 72 BPM P-R Int : 140 ms QRS Dur : 84 ms QT Int : 398 ms P-R-T Axes : 39 -8 14 degrees QTcB Int : 435 ms Normal sinus rhythm Normal ECG No previous ECGs available Confirmed by CURRY BROCK, YOGI ([id number]), state editor SAMUEL FIORE ([id number]) on 07/18/2025 6:38:25 AM Referred By: Shari Owens Confirmed By: YOGI ZAPIEN MD
[2025-07-17] MEDS: Lactated Ringers 1,000 ML 15 ML IV (09:43)
--- NOTE | 2025-07-17 09:54 | PRE.ANES_ITS ---
ASA Classification* ASA Classification ASA Classification: 2 Assessment & Plan Anesthesia* Anesthesia Assessment Anesthesia Assessment: Discussed sedation and/or anesthesia options, risks, benefits, and alternatives with patient/parents/legal guardian/POA. Questions invited. The patient/parents/legal guardian/POA seems to understand and agrees to proceed with anesthesia plan. Reviewed the physical assessment, medical history, allergy history and patient home medications list prior to surgery/procedure/anesthetic and documented any changes. Performed airway and anesthesia risk assessments. Anesthesia Type Anesthesia Type: General and MAC History Source History Obtained from:: Patient and Chart Anesthesia Focused Assessment* Temperature: 98.5 F Pulse Rate: 81 Respiratory Rate: 18 Pulse Ox: 98 Oxygen Delivery Method: Room Air Airway Assessment Mouth opens: >3 cm Mallampati Score: II Teeth Condition: Intact Neck Range of motion (ROM): Limited ROM Labs Anesthesia Preop lab: CBC WBC, (4.4-11.0) 6.3 K/mm3 05/11/25, 15:37 RBC, (4.2-5.4) 4.32 M/mm3 05/11/25, 15:37 Hgb, (12.0-15.0) 13.3 g/dL 05/11/25, 15:37 Hct, (37-47) 40.8 % 05/11/25, 15:37 Plt Count, (150-450) 281 K/mm3 05/11/25, 15:37 CHEMISTRY Potassium, (3.3-5.1) 3.6 mmol/L 05/11/25, 15:37 Sodium, (133-145) 143 mmol/L 05/11/25, 15:37 Magnesium, (1.5-2.2) 2.0 mg/dL 05/11/25, 15:37 BUN, (4-19) 26 mg/dL H 05/11/25, 15:37 Creatinine, (0.70-1.20) 0.94 mg/dL 05/11/25, 15:37 Glucose, (70-99) 121 mg/dL H 05/11/25, 15:37 TSH, (0.300-4.200) 3.240 uIU/mL 05/11/25, 15:37 COAG Pre-Assessment Diagnosis/Proposed Procedure Planned Operative Procedure(s): HYSTEROSCOPY D&C Anesthesia History 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 When Was Last Pacemaker Check QUESTION #4 FULL TEXT: You/Your Family Experience fever (hyperthermia) with Anesthesia Last Oral Intake Last Oral intake: Last Oral Intake NPO since 00:00 07/17/25 09:36 Meds taken in AM with sips of Yes 07/17/25 09:36 water? Meds patient instructed to take am of surgery PONV PONV - motors and controls tester: PONV - motors and controls tester Female Yes 07/11/25 14:34 HX of Motion Sickness Yes 07/11/25 14:34 HX of N/V After Surgery No 07/11/25 14:34 Non-Smoker Yes 07/11/25 14:34 Duration of Surgery greater No 07/11/25 14:34 than 60 minutes Number of Risk Factors 3 07/11/25 14:34 PONV Score Moderate Risk 07/11/25 14:34 Height & Weight Height & Weight: Anesthesia: Height & Weight Height 5 ft 3.5 in 07/17/25 09:36 Weight: 63 kg 07/17/25 09:36 Body Mass Index (BMI) 24.2 07/17/25 09:36 Respiratory Assessment Respiratory Assessment - motors and controls tester: Respiratory Tract Infection Hx - motors and controls tester Hx Respiratory Tract Infection No 07/11/25 14:34 STOP Sleep Apnea STOP Sleep Apnea - motors and controls tester: STOP Sleep Apnea - motors and controls tester Hx Hypertension Yes: CONTROLLED WITH MED 07/11/25 14:34 Hx Sleep Apnea No 07/11/25 14:34 CPAP BIPAP Do you snore loudly (louder No 07/11/25 14:34 than talking or can be heard Do you often feel tired/ No 07/11/25 14:34 fatigued/ sleepy during daytime? Has anyone observed you stop No 07/11/25 14:34 breathing during sleep? STOP Results Negative 07/11/25 14:34 QUESTION #5 FULL TEXT : Do you snore loudly (louder than talking or can be heard through closed doors)? 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 Specify any problems Hx of Preganancy in last 3 No 07/11/25 14:34 Months Nurse Filling Out Transfusion DSCHRIBER 07/11/25 14:34 & Questions: Date: 07/11/25 07/11/25 14:34 Time: 14:36 07/11/25 14:34 Patient unable to answer at this time (ie. confused, unrespo /Reproduction History /Reproductive History - motors and controls tester: /Reproductive Hx- motors and controls tester Hx Now No 07/11/25 14:34 Gestational Age (in weeks): EDC: Hx Hx Para Hx Section SAB No 07/11/25 14:34 Does the father of the baby or his family experience fever w Father of the baby Malignant Hypertension history comment Active Medications Active Medications: Current Medications Generic Name Dose Route Start Last Admin Trade Name Freq PRN Reason Stop Dose Admin Lactated Ringer's 1,000 mls @ 15 mls/hr 07/17/25 09:45 07/17/25 09:43 IV 15 mls/hr .Q48H KYLE Administration Levonorgestrel 1 each 07/17/25 10:35 Levonorgestrel Iud (Liletta) INTRA-UTER 07/17/25 10:36 X1 ONE PFSH Medical History Loss of hearing Wears glasses Post-menopausal Difficulty swallowing Non-smoker Leg cramps History of edema Hypertension Puncture wound without foreign body of right ear, sequela Dysesthesia of face Home Medications ?Medication ?Instructions ?Recorded ?Last Taken ?Type hydrochlorothiazide 25 mg tablet 25 mg PO DAILY 07/17/25 History calcium carbonate (Calcium 600) 600 mg PO QDAY 05/29/ 5 07/16/25 History amlodipine 10 mg tablet 10 mg PO 1400 07/11/2507/17 History ergocalciferol (vitamin D2) 1,250 1,250 mcg PO QWEEK 1 09/10/24 07/16/25 History mcg (50,000 unit) capsule Allergy/AdvReac Type Severity Reaction Status Date / Time No Known Allergies Allergy Verified 07/17/25 09:33 Family History Aunt Asthma Mother Cancer Lung cancer Brain cancer Grandmother Diabetes Uncle Heart disease Sister Thyroid disorder Surgical History History of excision of lesion H/O hernia repair Social History current occupational status: retired Smoking Status: Never smoker alcohol intake: never substance use type: does not use seatbelt use: always do you feel safe at home: Yes additional social history: Single TAKES ASPIRIN NEEDED FOR PAIN DOES NOT TAKE IBUPROFEN Review of Systems (Anesthesia) ROS Narrative System reviewed and no additional complaints, except as documented.
--- NOTE | 2025-07-17 10:19 | PCM.HP.BLA ---
History and Physical Intake Vital Signs 05/29/2514:11 06/22/2514:31 06/22/2514:32 Height 5 ft 3.5 in 5 ft 3 in 5 ft 3.5 in Weight: 134 lb 9 oz 137 lb 1 oz BMI 23.4 24.3 BP 131/76 H 149/76 H Intake Visit Reasons: Discuss surgery Motor Vehicle Parts Interpreter Required: No Is patient in pain?: No Allergies No Known Allergies Allergy (Verified 06/22/25 14:25) Medications ?Medication ?Instructions ?Recorded ?Confirmed ?Type amitriptyline 10 mg tablet 10 mg PO DAILY 01/31/20 06/22/25 History hydrochlorothiazide 25 mg tablet 25 mg PO DAILY 01/31/20 06/22/25 History calcium carbonate (Calcium 600) 600 mg PO QDAY 05/29/25 06/22/25 History cholecalciferol (vitamin D3) 62.5 mcg PO 05/29/25 06/22/25 History mcg (2,500 unit) capsule Is last menstrual period known: No Post menopausal: Yes Patient : No : No [facility] Medical History (Updated 06/22/25 @ 15:[address] Shari Owens MD) Puncture wound without foreign body of right ear, sequela Dysesthesia of face High blood pressure Hearing problem Cataracts, bilateral Surgical History History of excision of lesion H/O hernia repair Family History Aunt Asthma Mother Cancer Lung cancer Brain cancer Grandmother Diabetes Uncle Heart disease Sister Thyroid disorder Social History current occupational status: retired Smoking Status: Never smoker alcohol intake: never substance use type: does not use seatbelt use: always do you feel safe at home: Yes additional social history: Single TAKES ASPIRIN NEEDED FOR PAIN DOES NOT TAKE IBUPROFEN HPI Discuss surgery Details: The patient is a postmenopausal female presenting with recurrent bleeding and cramping. Recurrent Bleeding and Cramping - Reports recurrent bleeding and cramping over the past year, despite being postmenopausal for approximately 15-20 years. - Describes the most severe episode occurring in March, characterized by intense cramping that made it difficult to sit and relax. - Bleeding during this episode lasted about a week and was more substantial compared to other episodes, which were described as hardly anything. - Initially, bleeding episodes were infrequent, occurring every 1-2 months and lasting for a short duration. However, following the severe episode in March, bleeding has become more frequent, occurring every couple of weeks with minimal bleeding. - Endometrial biopsy performed by the nurse practitioner revealed hyperplasia. Past Medical History - Hypertension - Fibroid - Hypokalemia Current Medications and Supplements - Hydrochlorothiazide - Calcium supplement ROS ROS Narrative Constitutional: (+) weight gain Cardiovascular: (+) lower extremity swelling Respiratory: (+) cough Gastrointestinal: (+) diarrhea Genitourinary: (+) abnormal uterine bleeding, (+) pelvic cramping, (+) stress urinary incontinence Musculoskeletal: (-) back pain, (-) joint pain Skin: (+) thick toenails, (+) brittle fingernails, (-) skin lesions, (-) rash Neurological: (-) numbness, (-) tingling Endocrine: (-) heat intolerance, (-) cold intolerance, (-) excessive thirst Exam Const General: cooperative, healthy appearing, comfortable and no acute distress Orientation: alert [facility] Head: normal to inspection and normocephalic Ears: hearing grossly normal bilaterally and external ears normal Nose: external nose normal and nares normal Face and sinus: normal facial exam Neck Neck: normal visual inspection and no lymphadenopathy Thyroid: thyroid normal Chest Chest palpation & inspection: normal inspection of the chest Resp Effort & Inspection: normal respiratory effort Auscultation: clear to auscultation bilaterally Cardio Rate: regular rate Rhythm: regular rhythm Heart Sounds: S1 normal and S2 normal GI Inspection: normal to inspection and non-distended Palpation: soft and no hepatosplenomegaly Musc Other: gross motor intact no deficits, full bilateral strength Skin General: no rashes or lesions noted Neuro General: patient alert, patient awake, moves all extremities and no focal motor deficits Motor: muscle tone normal throughout Extrem General: normal to inspection and no pedal edema Psych Appearance: grossly normal Mental Status: mental status grossly normal Affect: normal affect Speech and Movement: speech and movement normal Coding Level of Care Code Off vis,est,level 4 Diagnoses Endometrial hyperplasia without atypia N85.00 Uterine fibroid D25.9 Post-menopausal bleeding N95.0 Assessment and Plan Assessment and Plan (1) Endometrial hyperplasia without atypia: Status: Acute Comment: plan hysteroscopy D&C symphion discused options and plan oral progesterone after (2) Uterine fibroid: Status: Acute Comment: 3.8cm (3) Post-menopausal bleeding: Status: Acute Comment: Uterine lining 1.9cm Plan # Postmenopausal bleeding (N95.0): - Recurrent, intermittent postmenopausal uterine bleeding over the past year with occasional severe cramping. - Proceeding with outpatient dilation and curettage (D&C) and hysteroscopy under moderate sedation to visualize the endometrial cavity, obtain comprehensive sampling, and address any identified lesions. - Reviewed risks of the procedure (uterine perforation, bleeding, infection, anesthesia-related risks); patient consented, including possible blood transfusion if necessary. - Provided instructions for preoperative preparation, including nothing by mouth for 8 hours before the procedure and permissible clear liquids up to 2 hours prior. - Patient advised to use the prescribed surgical prep soap from the neck down the night before and the morning of surgery. - Will follow up in approximately 6 months for repeat endometrial sampling if indicated; patient instructed to contact the office for any excessive or concerning bleeding prior to scheduled evaluation. # Endometrial hyperplasia (N85.00): - Recent office biopsy confirmed a precancerous overgrowth of the endometrium without evidence of invasive carcinoma. - Discussed two progesterone-based management options (oral progesterone vs. intrauterine device); patient opted for oral progesterone therapy for approximately 6 months. - Explained potential benefits (reversal of endometrial hyperplasia, resolution of abnormal bleeding) and risks (hormonal side effects), and patient acknowledged understanding. - After 6 months of therapy, will perform repeat endometrial biopsy in the office to assess regression of hyperplasia; if normal, patient will discontinue progesterone and undergo one final biopsy 6 months after cessation. - Advised patient to report any persistent or escalating bleeding. - Noted that if hyperplasia persists or progresses, hysterectomy may be considered. # Intramural leiomyoma of uterus (D25.1): - Diagnosed fibroid (benign smooth muscle tumor) identified; does not typically transform to malignancy. - During hysteroscopy, any accessible fibroid tissue protruding into the endometrial cavity will be resected; if intramural portion is not impinging on the uterine lining, no further intervention is indicated. - See Postmenopausal bleeding above for shared surgical and sedation plan. After discussing the patient's diagnosis and treatment plan options, patient wishes to proceed with surgical management. I have discussed with the patient the risks, benefits, and alternatives of the procedure which include but are not limited to risks of anesthesia, bleeding, infection, possible damage to bowel, bladder, or surrounding vasculature which could lead to additional surgery to evaluate any complications. Patient agrees to procedure and wishes to proceed. ACOG/uptodate references given for additional information regarding procedure. Patient Instructions: - Use the special antimicrobial soap on your entire body (from neck down) the night before and the morning of your surgery. - Do not eat for 8 hours before the procedure. You may have clear liquids (black coffee or tea without cream, clear sports drinks, sugar in tea) up to 2 hours before?confirm any specific drink instructions when you receive your pre-admission phone call. - You will have a same-day dilation and curettage with hysteroscopy under moderate sedation. You can go home later that day. - Begin the prescribed progesterone-only pill each evening after your procedure; you may take it with your usual medications. Continue daily for 6 months. - Six months after your surgery, schedule an office endometrial biopsy to confirm the lining has returned to normal. If that biopsy is normal, stop the progesterone and plan a second biopsy in another 6 months. If the second biopsy is also normal, no further treatment is needed unless you have new bleeding. - Watch for signs of infection (fever, worsening pain) or heavy or prolonged bleeding and contact the office right away if they occur. UPDATE- I have seen the patient and performed any clinically relevant updates to the history and physical exam. Shari Owens MD
--- NOTE | 2025-07-17 10:30 | EMB_PTH ---
PATIENT: ROSS KOEHLER LOC: [facility] [place] U#:[id number] AGE/SX: 69/F ROOM: RE07/17/[address]: Dr. Shari Owens MD : 1955 BED: DIS: 07/17/2025 SPEC #: [id number] RECD: 07/17/25 12:23 STATUS: ADRIENNE REAlfred #: [id number] MAN: 07/17/25 10:[address]: Shari Owens DEPT: SURGICAL PATHOLOGY RECD BY: Evan Daniels ENTERED: 07/17/25 14:18 SP TYPE: ENDOM BX/C OT DR: Dr. Bhanu Guerra MD Tissues: A - Endometrium, NOS Procedures: Surgery Specimen Level IV HEADER OPERATION: Hysteroscopy, D&C PRE-OP DIAGNOSIS: Endometrial hyperplasia without atypia, uterine fibroid, post-menopausal bleeding TISSUE SUBMITTED: A- Endometrial curettings and mass MICROSCOPIC DIAGNOSIS A. Endometrium, curettage: * Weakly proliferative endometrium with endometrial polyps and areas of endometrial hyperplasia without atypia MICROSCOPIC DESCRIPTION Slides are reviewed. GROSS DESCRIPTION A. Received in formalin labeled with the patient's name and date of . Designated as endometrial curettings and mass is a 5.6 x 4.0 by 0.6 cm aggregate of pink-hsu to red irregular tissue fragments and minimal clotted blood. Entirely submitted in 6 cassettes. NE 07/17/2025PT:[id number]
[2025-07-17] MEDS: Lactated Ringers 500 ML IV (11:01)
[2025-07-17] MEDS: Midazolam 2 MG/2 ML Syringe IV (11:03)
[2025-07-17] MEDS: Lidocaine 1% (5 ml sdv) 5 ML Vial 3 ML IV (11:06)
[2025-07-17] MEDS: fentaNYL 100 MCG/2 ML Ampul 50 MCG IV (11:06)
[2025-07-17] MEDS: Lidocaine 1% (20 ml mdv) 20 ML Vial (11:25)
--- NOTE | 2025-07-17 11:57 | PCM.POST.ANE ---
Anesthesia: Postop Eval I Current Vital Signs Temperature: 97.6 F Pulse Rate: 71 Blood Pressure: 113/85 Respiratory Rate: 16 Pulse Ox: 94 Oxygen Delivery Method: Room Air Assessment Airway patent: Yes Spontaneous unlabored respirations: Yes Mental status: Awake and Calm nausea: No Vomiting: No Anesthesia Complication: No Fluid Hydration Crystalloid volume administer (ml): 500 Total IV fluid infused: 500 Progress Note Anesthesia document: Postop Eval 1 completed: Yes
--- NOTE | 2025-07-17 12:10 | OP.PCM_ITS ---
Multi Select Codes Urinary/Genital Urinary/Genital CPT Codes: 46478 Hysteroscopy, Polypectomy, Symphion Operative Report (Standard) Operative Information Date of Procedure: 07/17/25 Pre-Operative Diagnosis: pmb thickened endometrium Post-Operative Diagnosis: same Surgery/Procedure Performed: dilation and curettage hysteroscopy symphion polypectomy software educator: No Type of Anesthesia: IV Sedation RN Documented Start/Stop Times: Operation Date: 07/17/25 10:30 Case Time Into Pre-Op 07/17/25 09:18 Anesthesia Start 07/17/25 11:01 Into Room 07/17/25 11:01 Procedure Start 07/17/25 11:23 Procedure End 07/17/25 11:39 Anesthesia End 07/17/25 11:52 Out of Room 07/17/25 11:52 Into Recovery 07/17/25 11:54 Procedure Start Time: 11:23 Procedure Stop Time: 11:39 Select all DRAINS/GRAFTS/IMPLANTS that apply: None Estimated Blood Loss: 25 Specimen collected: Yes Description of specimen(s) removed: endometrial curretings and polyp Description of surgery: Patient was prepped and draped in a normal sterile fashion under MAC anesthesia. A weighted speculum was placed in the vagina and the anterior lip of the cervix was grasped with a single-tooth tenaculum. A paracervical block was placed with 1% lidocaine. Cervix was progressively dilated to allow passage of a 5 mm hysteroscope. The lining was fully visualized and noted to have a large intracavitary lesion . Uterine sounded to 9 cm. Using the symphion device, the lesion was progressively removed without complications. Direct visual curettage was performed using the device , and all specimens were sent to pathology. All instruments were removed from the vagina and excellent hemostasis was noted. Patient was awoken and taken to recovery in stable condition. Surgical Findings: large intracavitary lesion Complications Complications: No
--- NOTE | 2025-07-17 12:14 | PCM.DC ---
Discharge Instructions DC O2, CPAP, BIPAP needs Home O2 Discharge instructions: No Dressing / Incision Discharge Activity: Return to Normal Activity, May Shower and May Take a Tub Bath (after 1 week) May resume sexual activity in: 1-2 weeks Weight Bearing Status: Weight bearing as tolerated Lifting Restrictions: none Dressing / Incision Call your doctor if you observe: Fever of 101 or Higher, Using more than 1 pad per hour, Shortness of breath and Uncontrolled pain Follow Up Care Please Follow Up With: Shari Owens MD When: Call [phone] to schedule appointment. Test Results: Test results from this visit will be discussed in further detail at your follow-up appointment, if applicable. Discharge Plan Admission Attending Provider: Shari Owens Primary Care Provider: Bhanu Guerra Instructions Print Language: [place] Island[place] Discharge Orders/Prescriptions Prescriptions: No Action hydrochlorothiazide 25 mg tablet 25 mg PO DAILY calcium carbonate [Calcium 600] 600 mg calcium (1,500 mg) tablet 600 mg PO QDAY ergocalciferol (vitamin D2) 1,250 mcg (50,000 unit) capsule 1,250 mcg PO QWEEK amlodipine 10 mg tablet 10 mg PO 1400 Referrals / Follow Up: Bhanu Guerra MD [Primary Care Provider, Family Practice] Disposition Disposition (needs filled in before D/C Order can be placed): Home, Self Care
--- NOTE | 2025-07-17 16:32 | POSTOPAN2_ITS ---
Anesthesia Postop Eval I Sum Postop Eval Completion status Anesthesia document: Postop Eval 1 completed: Yes Anesthesia Postop Eval I Summary Anesthesia Postop Eval I Summary: Anesthesia Postop Eval I: Assessment Summary Airway patent Yes 07/17/25 11:58 LABORATORY ANIMAL CARE VETERINARIAN.[email or web address] Spontaneous unlabored Yes 07/17/25 11:58 LABORATORY ANIMAL CARE VETERINARIAN.GDOTT respirations Mental status Awake,Calm 07/17/25 11:58 LABORATORY ANIMAL CARE VETERINARIAN.GDOTT nausea No 07/17/25 11:58 LABORATORY ANIMAL CARE VETERINARIAN.GDOTT Vomiting No 07/17/25 11:58 LABORATORY ANIMAL CARE VETERINARIAN.GDOTT Anesthesia Postop Eval I: Fluid Summary Crystalloid volume administer 500 07/17/25 11:58 LABORATORY ANIMAL CARE VETERINARIAN.GDOTT (ml) Colloids volume administered ( ml) Blood Product volume administered (ml) Total IV fluid infused 500 07/17/25 11:58 LABORATORY ANIMAL CARE VETERINARIAN.GDOTT Anesthesia Postop Eval I: Summary Notes Anesthesia Complication No 07/17/25 11:58 LABORATORY ANIMAL CARE VETERINARIAN.GDOTT Anesthesia Complication Comment: Post-operative progress note Anesthesia: Postop Eval II Evaluation Mental status: Awake and Calm Pain Level: 1 nausea: No Vomiting: No Complications Anesthesia Complication: No
--- NOTE | 2025-07-17 16:32 | PCM.POSTANE2 ---
Anesthesia Postop Eval I Sum Postop Eval Completion status Anesthesia document: Postop Eval 1 completed: Yes Anesthesia Postop Eval I Summary Anesthesia Postop Eval I Summary: Anesthesia Postop Eval I: Assessment Summary Airway patent Yes 07/17/25 11:58 COAL WASHER TENDER.[email or web address] Spontaneous unlabored Yes 07/17/25 11:58 COAL WASHER TENDER.GDOTT respirations Mental status Awake,Calm 07/17/25 11:58 COAL WASHER TENDER.GDOTT nausea No 07/17/25 11:58 COAL WASHER TENDER.GDOTT Vomiting No 07/17/25 11:58 COAL WASHER TENDER.GDOTT Anesthesia Postop Eval I: Fluid Summary Crystalloid volume administer 500 07/17/25 11:58 COAL WASHER TENDER.GDOTT (ml) Colloids volume administered ( ml) Blood Product volume administered (ml) Total IV fluid infused 500 07/17/25 11:58 COAL WASHER TENDER.GDOTT Anesthesia Postop Eval I: Summary Notes Anesthesia Complication No 07/17/25 11:58 COAL WASHER TENDER.GDOTT Anesthesia Complication Comment: Post-operative progress note Anesthesia: Postop Eval II Evaluation Mental status: Awake and Calm Pain Level: 1 nausea: No Vomiting: No Complications Anesthesia Complication: No
== END 2025-07-17 14:00 | disposition home or self-care (01) ==
LOC: SDC 09:03 → AC 09:05
PROVIDERS: PCP Family Medicine; Referring Provider Obstetrics & Gynecology; Visit Provider Obstetrics & Gynecology
PROC: 0UDB8ZZ Extraction of Endometrium, Via Natural or Artificial Opening Endoscopic (ICD-10-PCS; CPT 58558; principal; 2025-07-17 10:20)
DX: N85.01 Benign endometrial hyperplasia (principal); N95.0 Postmenopausal bleeding; D25.1 Intramural leiomyoma of uterus; I10 Essential (primary) hypertension; Z79.899 Other long term (current) drug therapy
CPT/HCPCS: 58558; 00952; 86850; 86900; 86901; 88305; 93005; J2405